=== PATIENT | female | born 1995 | race Caucasian/White ===

== ENCOUNTER 2024-12-19 09:07 | Emergency (ER) | payer OTHER, SELFPAY ==
[2024-12-19 09:16] VITALS: BP 110/76; PULSE 72; RESP 16; TEMP 36.8; O2SAT 100; BMI 23.4
--- NOTE | 2024-12-19 09:34 | ED_ITS ---
HPI - General Adult General Chief complaint: General Medical Stated complaint: needs meds for thyroid Time Seen by Provider: 12/19/24 09:34 Source: patient Mode of arrival: ambulatory Limitations: no limitations History of Present Illness ED Provider: HPI narrative: 29-year-old woman here for medication refill, she takes 150 mcg of levothyroxine, new to [place], has not seen a PCP, no other concerns. Related Data Previous Rx's ?Medication ?Instructions ?Recorded levothyroxine 150 mcg capsule 150 mcg PO DAILY #60 cap s 12/19/24 Allergies Allergy/AdvReac Type Severity Reaction Status Date / Time No Known Allergies Allergy Verified 12/19/24 09:17 Review of Systems Constitutional: Constitutional: Reports as per [facility] Social History Social History Advance Directives: No Advance Directives Information Provided: Yes Physical Exam ED Vital Signs: Vital Signs - 24 hr 12/19/24 09:16 Temperature 98.2 F Pulse Rate 72 Respiratory Rate 16 Blood Pressure 110/76 Pulse Oximetry 100 Oxygen Delivery Method Room Air BMI result Body Mass Index 23.4 Const Other: Generally well-appearing alert and oriented Ambulatory fully conversational Medical Decision Making Medical Decision Making [facility] Narrative: Patient is presenting for medication refill, we will see her PCP in [place] if her medication runs out, no other concerns Differential Diagnosis Differential Diagnoses: The differential diagnosis associated with the presentation includes (Myxedema coma, hypothyroidism, dehydration) Tests considered The following testing was considered but not selected: Blood work Discharge Plan Discharge Clinical Impression: Hypothyroidism, Medication refill Patient Disposition: Home, Self-Care Additional Instructions: Medication refilled, otherwise please follow up with the PCP Prescriptions: New levothyroxine 150 mcg capsule 150 mcg PO DAILY Qty: 60 0RF Print Language: Turkmen
[2024-12-19 10:06] VITALS: BP 110/76; PULSE 72; RESP 16; TEMP 36.8; O2SAT 100
--- OUTSIDE RECORDS SUMMARY | 2024-12-19 10:55 | XMS_ITS ---
Author Name [facility] Organization Unknown History of Medication Use Medication Directions Dispensed Refills Start Date End Date Stat us No medication inform ation recorded active Problems Problem Status Onset Date Problem Type Date of Resoluti on Source Atopic dermatitis, unspecified active 2023-05-[address] [facility] Hypothyroidism, unspecified active [facility]Act [facility] Cutaneous abscess of face active 2023-05-25 [facility]Act [facility] Encounters Encounter Type Encounter Reason Primary Diagnosis Location Date [facility] 08/18/2023 [facility] 05/18/2023 [facility] 05/12/2023 [facility] 04/22/2023 [facility] 04/17/2023 Care Team Organization Name Specialty Phone Email Start Date End [facility] 08/11/2023 [facility] Disclosed Primary Care 05/03/2023 [facility] Primary Care 05/03/2023 11/15/2024 [facility] PCP Stream Control Officer 05/03/2023 06/29/2024 [facility] [employer] PCP,No Primary Care 04/17/2023 06/29/2024 [facility] NO PCP Primary Care 04/17/2023 04/17/2023 [facility] 023 11/15/2024 [facility] 023 03/27/2023 [facility] hospital 10/23/2022
--- OUTSIDE RECORDS SUMMARY | 2024-12-19 10:55 | XMS_ITS | Clinical Summary ---
Author Organization [facility] Address [address] [place] [address] Care Team Providers Care Paint Supervisor Name Role Phone Pcp, No Primary Care Provider Unavailabl e Allergies No known active allergies Medications * This document contains information received from the source organization and may not represent a complete record from that organization. ibuprofen (MOTRIN) 200 MG tabletIndication s: labor in third trimester with delivery, single or unspecified fetus Take 3 tablets (600 mg total) by mouth every 6 (six) hours around the clock. 10/23/2018 Active Active Problems Problem Noted Date Diagnosed Date labor 10/23/2018 Family History Medical History Relation Name Comments Drug abuse Father Relation Name Status Comments Father Social History Tobacco Use Types Packs/Day Years Used Date Smoking Tobacco: Never Assessed Comments No Sex and Gender Information Value Date Recorded Sex Assigned at Female 02/24/2020 6:42 AM EST Legal Sex Female 1:21 PM EDT Gender Identity Female 02/24/2020 6:42 AM EST Sexual Orientation Bisexual 02/24/2020 6: 42 AM EST Last Filed Vital Signs Vital Sign Reading Time Taken Comments Blood Pressure 118/68 02/24/2020 12:24 AM EST Pulse 80 02/24/2020 12:24 AM EST Temperature 36.5 C (97.7 F) 02/24/2020 12:24 AM EST Respiratory Rate 16 02/24/2020 12:24 AM EST Oxygen Saturation 100% 02/24/2020 12:24 AM EST Inhaled Oxygen Concentration - - Weight 60.8 kg (134 lb) 10/23/2018 4:13 AM EDT Height 165.1 cm (5' 5 ) 10/23/2018 4:13 AM EDT Body Mass Index 22.3 10/23/2018 4:13 AM EDT Plan of Treatment Health Maintenance Due Date Last Done Comments DTaP/Tdap/Td Vaccines (1 - Tdap) 2014 Hepatitis B Vaccines (1 of 3 - 19+ 3-dose series) 2014 Pap Smear (Ages 21-65) 2016 HPV Vaccines (1 - 3-dose SCDM series) 2022 Influenza Vaccine 11/11/2024 COVID-19 Vaccine (2024- season) 2024 02/18/2022, 04/17/2021, 07/11/2020, Additional history exists HIV Screening Completed 10/23/2018 Hepatitis C Virus Screening Completed 10/23/2018 Pneumococcal Vaccine: Pediatric (0-5 Years) and At-Risk Patients (6 to 49 Years) Aged Out No longer eligible based on patient's age to complete this topic Procedures Procedure Name Priority Date/Time Associated Diagnosis Comments HIV 1/2 AG/AB CMIA REFLEX TO CONFIRMATION Routine 10/23/2018 4:11 AM EDT HEPATITIS C VIRUS (HCV) ANTIBODY Routine 10/23/2018 4:11 AM EDT from Last 3 Months or Most Recently Relevant to Health Maintenance Results * HIV 1/2 Ag/Ab CMIA Reflex to Confirmation (10/23/2018 4:11 AM EDT) HIV 1/2 Ag/Ab CMIA Nonreactive Nonreactive HOSPITAL [facility] Comment: Results show no evidence of infection by HIV 1/2. If clinically indicated, repeat CMIA or test by nucleic acid amplification. Performed at [facility], [place], [place] License 0385 CLIA [id number] Blood specimen (specimen) Blood specimen / Unknown 10/23/2018 4:11 AM EDT 10/23/2018 4:57 AM EDT us Renita Byrd MD LAB BLOOD ORDERABLES Final Resu lt HOSPITAL LAB * Hepatitis C Virus (HCV) Antibody (10/23/2018 4:11 AM EDT) Hepatitis C Antibody 0.17 0.00 - 0.79 S/CO ratio HOSPITAL LAB Comment: Nonreactive Performed at [facility], [place], [place] License 1327 CLIA [id number] Blood specimen (specimen) Blood specimen / Unknown 10/23/2018 4:11 AM EDT 10/23/2018 4:57 AM EDT us Renita Byrd MD LAB BLOOD ORDERABLES Final Resu lt HOSPITAL LAB from Last 3 Months or Most Recently Relevant to Health Maintenance Insurance [facility] Advance Directives * Full Code (Latest Code Status on File) Date Activated Date Inactivated Comments 10/23/2018 11:31 AM 02/24/2020 12:21 AM * Full Code Date Activated Date Inactivated Comments 10/23/2018 4:16 AM 10/23/2018 11:31 AM * Full Code Date Activated Date Inactivated Comments 10/23/2018 4:00 AM 10/23/2018 4:16 AM Care Teams Paint Supervisor Relationship Specialty Start Date End Date Pcp, No PCP - General General Medicine 02/24/20
--- OUTSIDE RECORDS SUMMARY | 2024-12-19 10:55 | XMS_ITS | Encounter Summary ---
Author Organization [facility] Address [address] [place] [address] Care Team Providers Care Master Tax Advisor Name Role Phone Unavailable Primary Care Provider Unavailabl e Encounter Details Date Type Department Care Team (Late st Contact Info) Description 02/22/2020 Scanned Document [facility] [address] [place] [address] Alivia Tyson MD [address] [place] [address] Social History Tobacco Use Types Packs/Day Years Used Date Smoking Tobacco: Never Assessed Comments No Sex and Gender Information Value Date Recorded Sex Assigned at Female 09/25/2020 4:17 PM EDT Legal Sex Female 9:16 AM EDT Gender Identity Female 09/25/2020 4:17 PM EDT Sexual Orientation Not on file documented as of this encounter Plan of Treatment Not on file documented as of this encounter Procedures Procedure Name Priority Date/Time Associated Diagnosis Comments LAB SCAN Routine 02/21/2020 documented in this encounter Results * Lab Scan (02/21/2020) us Alivia Tyson MD LAB BLOOD ORDERABLES Final Resul t documented in this encounter Visit Diagnoses Not on filedocumented in this encounter
--- OUTSIDE RECORDS SUMMARY | 2024-12-19 10:55 | XMS_ITS | Encounter Summary ---
Author Organization [facility] Address [address] [place] [address] Care Team Providers Care Polishing Machine Tender Name Role Phone Unavailable Primary Care Provider Unavailabl e Encounter Details Date Type Department Care Team (Late st Contact Info) Description 01/12/2020 Scanned Document [facility] [address] [place] [address] Alivia Tyson MD [address] [place] [address] Social History Tobacco Use Types [...] Date/Time Associated Diagnosis Comments LAB SCAN Routine 01/09/2020 documented in this encounter Results * Lab Scan (01/09/2020) us Alivia Tyson MD LAB BLOOD ORDERABLES Final Resul t documented in this encounter Visit Diagnoses Not on filedocumented in this encounter
--- OUTSIDE RECORDS SUMMARY | 2024-12-19 10:55 | XMS_ITS | Encounter Summary ---
Author Organization [facility] Address [address] [place] [phone] Care Team Providers Care Casino Supervisor Name Role Phone Unavailable Primary Care Provider Unavailabl e Encounter Details Date Type Department Care Team ([facility] st Contact Info) Description 10/25/2018 Documentation [facility] [address] [place] [phone] Aspen Mccormick MD [address] [place] [phone] Social History Tobacco Use Types Packs/Day Years Used Date Smoking Tobacco: Never Assessed Comments Yes Sex and Gender Information Value Date Recorded Sex Assigned at Female 09/25/2020 4:17 PM EDT Legal Sex Female 9:16 AM EDT Gender Identity Female 09/25/2020 4:17 PM EDT Sexual Orientation Not on file documented as of this encounter Plan of Treatment Not on file documented as of this encounter Visit Diagnoses Not on filedocumented in this encounter
--- OUTSIDE RECORDS SUMMARY | 2024-12-19 10:55 | XMS_ITS | Encounter Summary ---
Author Organization [facility] Address [address] [place] [address] Care Team Providers Care Automatic Serging Machine Operator Name Role Phone Unavailable Primary Care Provider Unavailabl e Encounter Details Date Type Department Care Team (Late st Contact Info) Description 08/17/2019 Scanned Document [facility] [address] [place], [place] [id number] Geronimo Alvarez LCSW Social History Tobacco Use Types Packs/Day Years Used Date Smoking Tobacco: Never Assessed Comments No Sex and Gender Information Value Date Recorded Sex Assigned at Female 09/25/2020 4:17 PM EDT Legal Sex Female 9:16 AM EDT Gender Identity Female 09/25/2020 4:17 PM EDT Sexual Orientation Not on file COVID-19 Exposure Response Date Recorded In the last month, have you been in contact with someone who was confirmed or suspected to have Coronavirus / COVID-19? No / Unsure 08/16/2019 1:51 PM EDT documented as of this encounter Plan of Treatment Not on file documented as of this encounter Visit Diagnoses Not on filedocumented in this encounter
--- OUTSIDE RECORDS SUMMARY | 2024-12-19 10:55 | XMS_ITS | Encounter Summary ---
Author Organization [facility] Address [address] [place] [address] Care Team Providers Care Reptile Farmer Name Role Phone Unavailable Primary Care Provider Unavailabl e Encounter Details Date Type Department Care Team (Late st Contact Info) Description 08/16/2019 Scanned Document [facility] [address] [place], [place] [phone] Chanel Licea RN Social History Tobacco Use Types Packs/Day Years [...]
--- OUTSIDE RECORDS SUMMARY | 2024-12-19 10:55 | XMS_ITS | Encounter Summary ---
Author Organization [facility] Address [address] [place] [address] Care Team Providers Care Ice Resurfacing Machine Operators Name Role Phone Unavailable Primary Care Provider Unavailabl e Encounter Details Date Type Department Care Team (Late st Contact Info) Description 08/15/2019 Scanned Document [facility] [address] [place], [place] [phone] Melida Edwards Social History Tobacco Use Types Packs/Day Years [...]
--- OUTSIDE RECORDS SUMMARY | 2024-12-19 10:55 | XMS_ITS | Encounter Summary ---
Author Organization [facility] Address [address] [place] [address] Care Team Providers Care Aircraft Metalsmith Name Role Phone Unavailable Primary Care Provider Unavailabl e Encounter Details Date Type Department Care Team (Late st Contact Info) Description 02/16/2020 Scanned Document [facility] [address] [place] [address] Alivia Tyson MD [address] [place] [address] Social History Tobacco Use Types [...] Date/Time Associated Diagnosis Comments LAB SCAN Routine 02/14/2020 documented in this encounter Results * Lab Scan (02/14/2020) us Alivia Tyson MD LAB BLOOD ORDERABLES Final Resul t documented in this encounter Visit Diagnoses Not on filedocumented in this encounter
--- OUTSIDE RECORDS SUMMARY | 2024-12-19 10:55 | XMS_ITS | Encounter Summary ---
Author Organization [facility] Address [address] [place] [address] Care Team Providers Care Manager Pmo Name Role Phone Unavailable Primary Care Provider Unavailabl e Encounter Details Date Type Department Care Team (Late st Contact Info) Description 12/23/2019 Scanned Document [facility] [address] [place], [place] [phone] Jeannie Bauman LCSW Social History Tobacco Use Types Packs/Day [...]
--- OUTSIDE RECORDS SUMMARY | 2024-12-19 10:55 | XMS_ITS | Encounter Summary ---
Author Organization [facility] Address [address] [place] [address] Care Team Providers Care Matching Machine Operator Name Role Phone Lazaro Mtz MD Primary Care Provider Pcp, No Primary Care Provider Unavailabl e Encounter Details Date Type Department Care Team (Late st Contact Info) Description 01/27/2019 Telephone [facility] [address] [place] [phone] Nadya Rubalcava MD [address] [place] [phone] Social History Tobacco Use Types Packs/Day Years Used Date Smoking Tobacco: Never Assessed Comments No Sex and Gender Information Value Date Recorded Sex Assigned at Female 02/24/2020 6:42 AM EST Legal Sex Female 1:21 PM EDT Gender Identity Female 02/24/2020 6:42 AM EST Sexual Orientation Bisexual 02/24/2020 6: 42 AM EST documented as of this encounter Plan of Treatment Not on file documented as of this encounter Visit Diagnoses Not on filedocumented in this encounter Care Teams Matching Machine Operator Relationship Specialty [place] [address] [place] [phone] PCP - General Family Medicine 12/23/18 02/23/20 Pcp, No PCP - General General Medicine 02/24/20 documented as of this encounter
--- OUTSIDE RECORDS SUMMARY | 2024-12-19 10:55 | XMS_ITS | Encounter Summary ---
Author Organization [facility] Address [address] [place] [address] Care Team Providers Care Silo Worker Name Role Phone Unavailable Primary Care Provider Unavailabl e Encounter Details Date Type Department Care Team (Late st Contact Info) Description 08/17/2019 Scanned Document [facility] [address] [place], [place] [phone] Been Keagan Baum MD [address] [facility] [address] [place] [address] Social History Tobacco Use Types Packs/Day Years [...]
--- OUTSIDE RECORDS SUMMARY | 2024-12-19 10:55 | XMS_ITS | Encounter Summary ---
Author Organization [facility] Address [address] [place] [address] Care Team Providers Care Surgical Instrument Technician Name Role Phone Unavailable Primary Care Provider Unavailabl e Encounter Details Date Type Department Care Team (Late st Contact Info) Description 01/18/2020 Scanned Document [facility] [address] [place] [address] Alivia Tyson MD [address] [place] [address] Social History Tobacco Use Types [...] Date/Time Associated Diagnosis Comments LAB SCAN Routine 01/16/2020 documented in this encounter Results * Lab Scan (01/16/2020) us Alivia Tyson MD LAB BLOOD ORDERABLES Final Resul t documented in this encounter Visit Diagnoses Not on filedocumented in this encounter
--- OUTSIDE RECORDS SUMMARY | 2024-12-19 10:55 | XMS_ITS | Clinical Summary ---
Author Organization [address] Address [address] [place] [phone] Care Team Providers Care Freight Breaker Name Role Phone Unavailable Primary Care Provider Unavailabl e Allergies No known active allergies Medications * This document contains information received from the source organization and may not represent a complete record from that organization. traZODone (DESYREL) 50 mg tablet Take 1 tablet (50 mg total) by mouth nightly. 30 tablet 0 Active naloxone (NARCAN) 4 mg/actuation nasal spray Use 1 spray in 1 nostril for suspected opioid overdose. May repeat in 2 minutes in other nostril with new device if minimal or no response. 2 each 1 0 Active methadone (DOLOPHINE) 10 mg/5 mL solution Take 80 mg by mouth daily. Active GABAPENTIN ORAL Take by mouth. Active levothyroxine (SYNTHROID, LEVOTHROID) 100 MCG tablet Take 1 tablet (100 mcg total) by mouth daily. 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 Chronic post-traumatic stress disorder (PTSD) Opioid use disorder, severe, on maintenance ther apy 08/16/2019 Screening-pulmonary TB 08/16/2019 Unwanted with plans for termination Immunizations Immunization Administration Dates Next Due TB Screening (PPD/Quantiferon) 08/16/2019 Social History Tobacco Use Types Packs/Day Years Used Date Smoking Tobacco: Never Assessed Comments No Sex and Gender Information Value Date Recorded Sex Assigned at Female 09/25/2020 4:17 PM EDT Legal Sex Female 9:16 AM EDT Gender Identity Female 09/25/2020 4:17 PM EDT Sexual Orientation Not on file Last Filed Vital Signs Vital Sign Reading Time Taken Comments Blood Pressure 113/81 09/25/2020 2:48 PM EDT Pulse 87 09/25/2020 2:48 PM EDT Temperature 36.5 C (97.7 F) 09/25/2020 2:48 PM EDT Respiratory Rate 18 09/25/2020 2:48 PM EDT Oxygen Saturation 100% 09/25/2020 2:48 PM EDT Inhaled Oxygen Concentration - - Weight 61.2 kg (135 lb) 09/25/2020 2:46 PM EDT Height 167.6 cm (5' 6 ) 08/16/2019 2:25 PM EDT Body Mass Index 21.79 08/16/2019 2:25 PM EDT Plan of Treatment Health Maintenance Due Date Last Done Comments Tetanus adult (Td q 10,TDAP once) 2015 Cervical cancer screening 2016 Covid-19 vaccine series ( season) 2024 Influenza vaccine 12/12/2024 RSV Immunization (1 - 1-dose 75+ series) 2070 Chlamydia screening Discontinued 08/17/2019 HIV screening Completed 08/17/2019 Hepatitis C screening Completed 08/17/2019 Meningococcal B Vaccine Aged Out No l onger eligible based on patient's age to complete this topic Meningococcal Vaccine Aged Out No leroy jasbir eligible based on patient's age to complete this topic Pneumococcal Vaccine (2 - 49 years) Aged Out No longer eligible b ased on patient's age to complete this topic Procedures Procedure Name Priority Date/Time Associated Diagnosis Comments HIV 1/2 AG/AB, W/REFLEXES (Q) Routine 08/17/2019 9:37 AM EDT Opioid type dependence, continuous (HC Code) C. TRACHOMATIS/N. GONORRHOEAE RNA BY TMA (Q) Routine 08/17/2019 9:37 AM EDT Opioid type dependence, continuous (HC Code) HEPATITIS PANEL, ACUTE W/REFLEX (Q) Routine 08/17/2019 9:37 AM EDT Opioid type dependence, continuous (HC Code) from Last 3 Months or Most Recently Relevant to Health Maintenance Results * HIV 1/2 ag/ab, w/reflexes (Q) (08/17/2019 9:37 AM EDT) HIV Ag/Ab, 4th Generation NON-REACT EARNESTINE NON-REACT EARNESTINE [facility] Comment: HIV-1 antigen and HIV-1/HIV-2 antibodies were not detected. There is no laboratory evidence of HIV infection. PLEASE NOTE: This information has been disclosed to you from records whose confidentiality may be protected by state law. If your state requires such protection, then the state law prohibits you from making any further disclosure of the information without the specific written consent of the person to whom it pertains, or as otherwise permitted by law. A general authorization for the release of medical or other information is NOT sufficient for this purpose. For additional information please refer to http://[employer]/faq/ISY459 (This link is being provided for informational/ educational purposes only.) The performance of this assay has not been clinically validated in patients less than 2 years old. Blood 08/17/2019 9:37 AM EDT 08/18/2019 12:04 AM EDT Keagan Baum MD LAB BLOOD ORDERABLES [facility] al Result Performing Organization Address City/State/[facility] Co de Phone Number [facility] [address] [place] [address] * Hepatitis panel, acute w/reflex (Q) (08/17/2019 9:37 AM EDT) Hep A IgM NON-REACT EARNESTINE NON-REACT EARNESTINE [facility] Comment: For additional information, please refer to http://[employer]/faq/QDT528 (This link is being provided for informational/ educational purposes only.) Hepatitis B Surface Ag NON-REACT EARNESTINE NON-REACT EARNESTINE [facility] Hep B c IgM NON-REACT EARNESTINE NON-REACT EARNESTINE [facility] Hepatitis C Ab NON-REACT EARNESTINE NON-REACT EARNESTINE [facility] Signal To Cut-Off 0.04 <1.00 [facility] Comment: HCV antibody was non-reactive. There is no laboratory evidence of HCV infection. In most cases, no further action is required. However, if recent HCV exposure is suspected, a test for HCV RNA (test code 17320) is suggested. For additional information please refer to http://[employer]/faq/CCD41o6 (This link is being provided for informational/ educational purposes only.) Blood 08/17/2019 9:37 AM EDT 08/18/2019 12:04 AM EDT Keagan Baum MD LAB BLOOD ORDERABLES Fin al Result Performing Organization Address [facility] Co de Phone Number [facility] [address] [place] [address] * C. trachomatis/N. gonorrhoeae RNA by TMA, (LMW Q) (08/17/2019 9:37 AM EDT) C. trachomatis RNA, TMA NOT DETECTED NOT DETECTED [facility] Neisseria gonorrhoeae RNA, TMA NOT DETECTED NOT DETECTED [facility] Comment [facility] Comment: The analytical performance characteristics of this assay, when used to test SurePath(TM) specimens have been determined by [employer]. The modifications have not been cleared or approved by the FDA. This assay has been validated pursuant to the CLIA regulations and is used for clinical purposes. For additional information, please refer to https://[employer]/faq/PUU163 (This link is being provided for information/ educational purposes only.) Culture URINE SPECIMEN / Unknown 08/17/2019 9:37 AM EDT 08/18/2019 12:04 AM EDT Keagan Baum MD MICROBIOLOGY - GENERAL O RDERABLES Final Result Performing Organization Address [facility] Co de Phone Number [facility] [address] [place] [address] from Last 3 Months or Most Recently Relevant to Health Maintenance Insurance [place]
--- OUTSIDE RECORDS SUMMARY | 2024-12-19 10:55 | XMS_ITS | Clinical Summary ---
Author Organization [facility] Address [address] [place] [address] Phone Care Team Providers Care Gunner'S Mate G Name Role Phone Physician, Pcp Unknown Primary Care Provider Zuri vailable Allergies No known active allergies Encounters Date Type Department Care Team Description 11/07/2024 5:36 PM EDT - 11/07/2024 5:58 PM EDT [facility] Emergency [address] [place] [address] Chris Cary MD Insect bite of right lower leg, initial encounter (Primary Dx); Cellulitis of right lower extremity Discharge Disposition: Home or Self Care from Last 3 Months Medical History Medical History Date Comments Chronic constipation DX:Chronic constipation Hypothyroidism DX:Hypothyroidis m Hypothyroid Social History Tobacco Use Types Packs/Day Years Used Date Smoking Tobacco: Never Smokeless Tobacco: Never Tobacco Cessation:Counseling Given: Not Answered Alcohol Use Standard Drinks/Week Comments Never 0 (1 standard drink = 0.6 oz pur e alcohol) Comments Unknown Sex and Gender Information Value Date Recorded Sex Assigned at Not on file Legal Sex Female 7:04 AM EST Gender Identity Not on file Sexual Orientation Not on file Obstetrics History Last Filed Vital Signs Vital Sign Reading Time Taken Comments Blood Pressure 116/86 11/07/2024 4:54 PM EDT Pulse 80 11/07/2024 4:54 PM EDT Temperature 36.8 C (98.2 F) 11/07/2024 4:54 PM EDT Respiratory Rate 16 11/07/2024 4:54 PM EDT Oxygen Saturation 99% 11/07/2024 4:54 PM EDT Inhaled Oxygen Concentration - - Weight 65.8 kg (145 lb) 11/07/2024 4:54 PM EDT Height 167.6 cm (5' 6 ) 11/07/2024 4:54 PM EDT Body Mass Index 23.4 11/07/2024 4:54 PM EDT Plan of Treatment Health Maintenance Due Date Last Done Comments DTaP,Tdap,and Td Vaccines (1 - Tdap) 2014 Hepatitis B Vaccines (1 of 3 - 19+ 3-dose series) 2014 Cervical Cancer Screening: P ap Smear 2016 HIV Screening 11/03/2023 Social Influencers of Health Screening 11/03/2023 Depression Screening 04/13/2024 COVID-19 Vaccine ( - 2023-2 5 season) 2024 Influenza Vaccine (#1) 2024 Hepatitis C Screening Completed 10/23/2018 HIB Vaccines Aged Out No longer eligi ble based on patient's age to complete this topic HPV Vaccines Aged Out No longer eligi ble based on patient's age to complete this topic Hepatitis A Vaccines Aged Out No long er eligible based on patient's age to complete this topic IPV Vaccines Aged Out No longer eligi ble based on patient's age to complete this topic MMR Vaccines Aged Out No longer eligi ble based on patient's age to complete this topic Meningococcal ACWY Vaccine Aged Out N o longer eligible based on patient's age to complete this topic Meningococcal B Vaccine Aged Out No l onger eligible based on patient's age to complete this topic Pneumococcal Vaccine: Pediat rics (0 to 5 Years) and At-Risk Patients (6 to 49 Years) Aged Out No longer eligi ble based on patient's age to complete this topic RSV Immunization Patients Un thomas 20 months Aged Out No longer eligible b ased on patient's age to complete this topic Varicella Vaccines Aged Out No longer eligible based on patient's age to complete this topic Procedures Procedure Name Priority Date/Time Associated Diagnosis Comments ED INCISION AND DRAINAGE Routine 11/07/2024 5:57 PM EDT CA INCISION & DRAINAGE ABSCESS SIMPLE/SINGLE Routine 11/07/2024 5:57 PM EDT from Last 3 Months Results * CA INCISION & DRAINAGE ABSCESS SIMPLE/SINGLE, HC I&D/EXCISION/BIOPSY BONE MARROW/TISSUE/TUMOR/HTOMA/ABSC/CYST LEVEL 1 (11/07/2024 5:57 PM EDT) Chris Cha MD - 11/07/2024 5:57 PM EDT Chris Cary MD 11/08/2024 12:24 AM Incision and Drainage Date/Time: 11/07/2024 5:57 PM Performed by: Chris Cary MD Authorized by: Chris Cary MD Consent: Consent obtained: Verbal Consent given by: Patient Risks discussed: Bleeding Pilot protocol: Procedure explained and questions answered to patient or proxy's satisfaction: yes Patient identity confirmed: Verbally with patient Location: Type: Abscess Location: Lower extremity Lower extremity location: Leg Pre-procedure details: Skin preparation: Povidone-iodine Sedation: Sedation type: None Anesthesia: Anesthesia method: None Procedure type: Complexity: Simple Procedure details: Incision depth: Subcutaneous Wound management: Probed and deloculated Drainage: Serosanguinous Drainage amount: Scant Post-procedure details: Procedure completion: Tolerated well, no immediate complications Chris Cary MD IN CLINIC/BEDSIDE ORDERAB LES Final Result from Last 3 Months Insurance [employer] Care Teams Gunner'[employer] Mate G Relationship Specialty Start Date End Date Physician, Pcp Unknown PCP - General 04/09/24
== END 2024-12-19 10:23 | disposition home or self-care (01) ==
PROVIDERS: Emergency Provider Emergency Medicine
DX: E03.9 Hypothyroidism, unspecified (principal); Z76.0 Encounter for issue of repeat prescription
CPT/HCPCS: 99282